=== PATIENT | female | born 1960 | race Caucasian/White ===

== ENCOUNTER 2019-02-19 04:29 | Emergency (ER) | payer BC ==
[2019-02-19] MEDS ORDERED: Famotidine IV* 10 MG/ML 2 ML (20 mg) IV SLOW PU ONE (05:22)
[2019-02-19] MEDS ORDERED: methylPREDNISolone 125 MG* 2 ML VIAL IV ONE (05:22)
--- NOTE | 2019-02-19 05:23 | ED ---
Allergic Reaction/Systemic - HPI Summary HPI Summary: Patient is a 59 y/o F presenting to [facility] with complaints of allergic reaction. Patient states that in the evening of 02/18/19, patient had onset of pruritus. Patient fell asleep and awoke at 0100 02/19/19 with rash present. She went to sleep again and awoke at 0400 with tongue swelling. She states that only half of her tongue was swollen. Patient was driving to ED and had onset of SOB. She took two Benadryl with some relief in Sx. Patient estimates that the tongue swelling has been reduced by 50%. Mouth was dry at the time as well. Patient also notes that she has had three episodes of rash within the past week. She denies new medications, new foods. Patient has purchased a new mattress two weeks ago but denies new sheets or laundry detergents. No different soap or shampoo noted either. PMHx of diabetes is noted, patient takes metformin, 500 mg daily. She is on metoprolol for arrhythmia. Penicillin, Bactrim, Amoxicillin , and Fenobarb allergy noted. She denies tobacco and substance use but endorses alcohol usage. PSHx of section and shoulder surgery is noted. Home medications and allergies are reviewed. - History of Current Complaint Chief Complaint: EDAllergicReaction Time Seen by Provider: 02/19/19 05:00 Hx Obtained From: Patient Onset/Duration: Started hours ago Timing: Lasting Hours Pain Intensity: 0 Pain Scale Used: 0-10 Numeric Character: Swelling - tongue, Pruritus, Hives Alleviating Factor(s): Antihistamines Associated Signs And Symptoms: Positive: Difficulty Breathing, Other: - tongue swelling, pruritus, rash - Allergies/Home Medications Allergies/Adverse Reactions: Allergies Allergy/AdvReac Type Severity Reaction Status Date / Time amoxicillin Allergy Rash Verified 02/20/19 20:38 Penicillins Allergy Rash Verified 02/20/19 20:38 sulfamethoxazole Allergy Rash Verified 02/20/19 20:38 [From Bactrim] trimethoprim [From Bactrim] Allergy Rash Verified 02/20/19 20:38 phenobarbital AdvReac Hallucinati Verified 02/20/19 20:38 ons PMH/Surg Hx/FS Hx/Imm Hx Endocrine/Hematology History: Reports: Hx Diabetes Cardiovascular History: Reports: Other Cardiovascular Problems/Disorders - arrhythmia Sensory History: Denies: Hx Legally Blind, Hx Deafness Opthamlomology History: Denies: Hx Legally Blind EENT History: Denies: Hx Deafness - Surgical History Surgery Procedure, Year, and Place: section and shoulder surgery Infectious Disease History: No Infectious Disease History: Denies: Traveled Outside the [place] in Last 30 Days - Family History Known Family History: Positive: Other - no reported FMHx of allergic reactions - Social History Alcohol Use: Rare Substance Use Type: Reports: None Smoking Status (MU): Never Smoked Tobacco Review of Systems ENT: Other - positive - dry mouth, tongue swelling Positive: Shortness Of Breath Skin: Other - positive - pruritus Positive: Rash All Other Systems Reviewed And Are Negative: Yes Physical Exam - Summary Physical Exam Summary: General: Well-developed, Obese Female. No acute distress. HEENT: Normocephalic, Atraumatic. Eyes: Conjuctiva normal, PERRL. Ears: TMs within normal limits. Nares: (-) discharge, (-) erythema. Oropharynx: Swelling of right tongue. Clear, mucous membranes moist, (-) exudates. Neck: Soft, FROM, (-) lymphadenopathy, (-) thyromegaly, (-) JVD. Cardiovascular: Normal sinus rhythm, (-) murmur. Lungs: Clear to auscultation bilaterally (-) wheezes, (-) rales, (-) rhonchi. Abdomen: Soft, non-tender, non-distended, (-) organomegaly, normal bowel sounds. Back: (-) CVA tenderness Extremities: No edema. Skin: Mild faint hives over right upper back, right chest. Neuro: Alert and oriented x3, no focal deficits. Psychiatric: Mood normal, affect normal. Triage Information Reviewed: Yes Vital Signs On Initial Exam: Initial Vitals Temp Pulse Resp BP Pulse Ox 98.4 F 68 15 183/77 98 02/19/19 04:30 02/19/19 04:30 02/19/19 04:30 02/19/19 04:30 02/19/19 04:30 Vital Signs Reviewed: Yes Procedures - Sedation Patient Received Moderate/Deep Sedation with Procedure: No Diagnostics - Vital Signs Vital Signs Temp Pulse Resp BP Pulse Ox 02/19/19 04:30 98.4 F 68 15 183/77 98 - Laboratory Lab Statement: Any lab studies that have been ordered have been reviewed, and results considered in the medical decision making process. Re-Evaluation - Re-Evaluation First Eval Re-Evaluation Time: 06:14 Change: Improved Comment: 0614 - tongue is decreasing in size, patient reports improvement of Sx. Second Eval Re-Evaluation Time: 06:51 Change: Improved Comment: Sx are improved, patient remained stable throughout ED stay. She is discharged to home. Allergic Reaction Course/Dx - Course Course Of Treatment: 59-year-old female presents with hives and tongue swelling. Tongue swelling is only on the right side. She had some feelings of chest tightness and difficulty swallowing prior to arrival. At her symptoms initially she took Benadryl which she thinks is now kicked in and is helping. She also had a couple episodes of hives in the last few days. She denies any new medications or products. No new foods or travel. Patient given Solu-Medrol , Pepcid. Fluids. He had Benadryl. Symptoms improved gradually. Discharged home. Follow up with PCP to consider allergy testing. Follow sooner if any worsening symptoms. During ED course, patient received Solu-Medrol 125 mg and Pepcid 40 mg IV. - Diagnoses Provider Diagnoses: Angioedema Discharge ED - Sign-Out/Discharge Documenting (check all that apply): Patient Departure - discharge - Discharge Plan Condition: Stable Disposition: HOME Patient Education Materials: Angioedema (ED) Referrals: Care [facility] [Outside] - 3 Days Additional Instructions: Please follow up with your primary care physician within three days. Consider allergy testing. If symptoms return, take Benadryl and please return to ED. Please return to ED for any other new or concerning symptoms. - Billing Disposition and Condition Condition: STABLE Disposition: Home - Attestation Statements Document Initiated by Evette: Yes Documenting Scribe: ANGEL PHELAN Provider For Whom Evette is Documenting (Include Credential): DOV CLINE MD Scribe Attestation: ANGEL Dunbar, scribed for DOV CLINE MD on 02/21/19 at 1946. Scribe Documentation Reviewed: Yes Provider Attestation: The documentation as recorded by the ANGEL walton accurately reflects the service I personally performed and the decisions made by me, DOV CLINE MD Status of Scribe Document: Viewed
[2019-02-19 07:11] VITALS: BP 146/70
== END 2019-02-19 07:11 | disposition home or self-care (01) ==
LOC: MERGE 04:29 → ED 04:29
DX: T78.3XXA Angioneurotic edema, initial encounter (principal); E11.9 Type 2 diabetes mellitus without complications; I49.9 Cardiac arrhythmia, unspecified; Z79.84 Long term (current) use of oral hypoglycemic drugs; Z79.899 Other long term (current) drug therapy; Z88.0 Allergy status to penicillin; Z88.1 Allergy status to other antibiotic agents; Z88.2 Allergy status to sulfonamides; Z88.8 Allergy status to other drugs, medicaments and biological substances
CPT/HCPCS: 96374; 96375; 99283; J2930

== ENCOUNTER 2019-02-20 20:33 | Emergency (ER) | payer BC ==
[2019-02-20 20:41] VITALS: BP 188/72
== END 2019-02-20 22:20 | disposition left against medical advice (07) ==
LOC: ED 20:33
DX: L50.9 Urticaria, unspecified (principal); Z53.21 Procedure and treatment not carried out due to patient leaving prior to being seen by health care provider